=== PATIENT | female | born 1950 | race Two or more races ===

== ENCOUNTER 2018-02-28 10:59 | Emergency (ER) | payer OTHER ==
[~2018-02-28] VITALS: Ht 165.1 cm; Wt 68.0 kg
[~2018-02-28 10:59] MED LIST: RELAFEN500 MG
== END 2018-02-28 19:50 | disposition home or self-care (01) ==
LOC: ER 10:59
DX: S52.691A Other fracture of lower end of right ulna, initial encounter for closed fracture (principal); S59.801A Other specified injuries of right elbow, initial encounter; W01.198A Fall on same level from slipping, tripping and stumbling with subsequent striking against other object, initial encounter; Y93.01 Activity, walking, marching and hiking; Y92.480 Sidewalk as the place of occurrence of the external cause; Y99.8 Other external cause status

== ENCOUNTER 2018-10-28 10:16 | Outpatient (CLI) | payer OTHER | END 2018-10-28 10:25 | disposition home or self-care (01) | LOC: NUCLEAR 10:16 | DX: C50.812 Malignant neoplasm of overlapping sites of left female breast (principal) | CPT/HCPCS: 78816; A9552 ==

== ENCOUNTER → 2018-11-10 | Outpatient (CLI) | payer OTHER | END | disposition home or self-care (01) | LOC: NUCLEAR 08:30 | DX: C50.912 Malignant neoplasm of unspecified site of left female breast (principal) | CPT/HCPCS: 78306; A9503 ==

== ENCOUNTER → 2020-07-16 | Outpatient (CLI) | payer OTHER | END | disposition home or self-care (01) | LOC: NUCLEAR 07:00 | PROVIDERS: ATTEND Internal Medicine Hematology & Oncology | DX: C50.812 Malignant neoplasm of overlapping sites of left female breast (principal) | CPT/HCPCS: 78816; A9552 ==

== ENCOUNTER 2021-08-20 08:22 | Outpatient (CLI) | payer OTHER | END 2021-08-20 08:23 | disposition home or self-care (01) | LOC: NUCLEAR 08:22 | PROVIDERS: ATTEND Internal Medicine Hematology & Oncology | DX: C50.912 Malignant neoplasm of unspecified site of left female breast (principal) | CPT/HCPCS: 78812; A9552 ==

== ENCOUNTER 2022-12-14 07:31 | Outpatient (CLI) | payer OTHER | END 2022-12-14 07:35 | disposition home or self-care (01) | LOC: NUCLEAR 07:31 | PROVIDERS: ATTEND Internal Medicine Hematology & Oncology | DX: C50.912 Malignant neoplasm of unspecified site of left female breast (principal) | CPT/HCPCS: 78815; A9552 ==

== ENCOUNTER 2024-05-29 08:20 | Outpatient (CLI) | payer OTHER | END 2024-05-29 08:21 | disposition home or self-care (01) | LOC: NUCLEAR 08:20 | PROVIDERS: ATTEND Internal Medicine Hematology & Oncology | DX: C50.912 Malignant neoplasm of unspecified site of left female breast (principal) | CPT/HCPCS: 78815; A9552 ==